=== PATIENT | female | born 1975 | race Caucasian/White ===

== ENCOUNTER 2016-03-29 08:57 | Emergency (ER) | payer SELFPAY ==
--- NOTE | 2016-03-29 10:59 | ER Document Report ---
ED ENT - General Chief Complaint: Sore Throat Stated Complaint: SORE THROAT Mode of Arrival: Ambulatory Information source: Patient Notes: 40 y/o F presents to ED c/o sinus pain, congestion, and sore throat. Pt reports intermittently persistent sinus pain for approximately last 3 weeks. States over the last 3 days pain and congestion has increased with associated small amount of whitish nasal drainage and sore throat. Reports associated subjective fever 2 days ago and bilateral ear "fullness". Denies difficulty breathing or swallowing, chest pain or shortness of breath, vision changes, neck pain, nausea or vomiting. - HPI Patient complains to provider of: Ear problem, Nose problem, Throat problem Onset: Last week Onset/Duration: Intermittent, Persistent, Worse Quality of pain: Achy Severity: Moderate Pain Level: 3 Context: Recent Illness Location of pain: Nose, Sinus, Throat Similar symptoms previously: Yes Recently seen / treated by doctor: No - Related Data Allergies/Adverse Reactions: azithromycin Allergy (Verified 03/29/16 09:23) Past Medical History - General Information source: Patient - Social History Smoking Status: Current Every Day Smoker Chew tobacco use (# tins/day): Yes Frequency of alcohol use: Occasional Drug Abuse: None Lives with: Family Family History: Reviewed & Not Pertinent Patient has suicidal ideation: No Patient has homicidal ideation: No - Medical History Medical History: Negative Surgical Hx: Negative - Immunizations Hx Diphtheria, Pertussis, Tetanus Vaccination: Yes Review of Systems - Review of Systems Constitutional: See HPI EENT: See HPI Cardiovascular: No symptoms reported Respiratory: No symptoms reported Gastrointestinal: No symptoms reported Genitourinary: No symptoms reported Female Genitourinary: No symptoms reported Musculoskeletal: No symptoms reported Skin: No symptoms reported Hematologic/Lymphatic: No symptoms reported Neurological/Psychological: No symptoms reported -: Yes All other systems reviewed and negative Physical Exam - Vital signs Vitals: Temp Pulse Resp BP Pulse Ox 97.9 F 78 16 110/64 100 03/29/16 09:01 03/29/16 09:01 03/29/16 09:01 03/29/16 09:01 03/29/16 09:01 Interpretation: Normal - General General appearance: Appears well In distress: None - HEENT Head: Normocephalic, Atraumatic Eyes: Normal Conjunctiva: Normal Extraocular movements intact: Yes Eyelashes: Normal Pupils: PERRL Ears: Normal. No: Pinna tenderness, Tragus tenderness External canal: Normal. No: Erythema, Swollen Tympanic membrane: Normal. No: Injected, Purulent effusion Sinus: Maxillary, Redness, Tenderness Nasal: No: Purulent discharge Mouth/Lips: Normal Mucous membranes: Normal, Moist Pharynx: Normal. No: Blood in hypopharynx, Erythema, Exudate, Peritonsillar abscess, Post nasal drainage, Retropharyngeal abscess, Tonsillar hypertrophy, Uvular edema, Potential airway comprom., Other Neck: Normal. No: Anterior cervical chain, Posterior cervical chain, Lymphadenopathy, Meningismus, Subcutaneous emphysema - Respiratory Respiratory status: No respiratory distress Chest status: Nontender Breath sounds: Normal - CTAB Chest palpation: Normal - Cardiovascular Rhythm: Regular Heart sounds: Normal auscultation Murmur: No Pulses: Normal: Radial, Posterior tibial, Dorsalis pedis Normal capillary refill: Yes - Abdominal Inspection: Normal Distension: No distension Bowel sounds: Normal Tenderness: Nontender Organomegaly: No organomegaly - Back Back: Normal, Nontender - Extremities General upper extremity: Normal inspection, Nontender, Normal color, Normal ROM , Normal temperature General lower extremity: Normal inspection, Nontender, Normal color, Normal ROM , Normal temperature, Normal weight bearing - Neurological Neuro grossly intact: Yes Cognition: Normal Orientation: AAOx4 [place] Coma Scale Eye Opening: Spontaneous [place] Coma Scale Verbal: Oriented [place] Coma Scale Motor: Obeys Commands [place] Coma Scale Total: 15 Speech: Normal Motor strength normal: LUE, RUE, LLE, RLE Sensory: Normal - Psychological Associated symptoms: Normal affect, Normal mood - Skin Skin Temperature: Warm Skin Moisture: Dry Skin Color: Normal Skin Turgor: Elastic Course - Re-evaluation Re-evalutation: 03/29/16 11:01 Patient hemodynamically stable, in no distress, afebrile. Patient is well- appearing and physical exam findings/presentation suggestive of uncomplicated sinusitis at this time. Patient appears stable for discharge and agrees with home care, follow-up, and ED return precautions. - Vital Signs Vital signs: Temp Pulse Resp BP Pulse Ox 97.9 F 78 16 110/64 100 03/29/16 09:01 03/29/16 09:01 03/29/16 09:01 03/29/16 09:01 03/29/16 09:01 Discharge - Discharge Clinical Impression: Sinusitis Qualifiers: Sinusitis location: maxillary Chronicity: acute Recurrence: not specified as recurrent Qualified Code(s): J01.00 - Acute maxillary sinusitis, unspecified Condition: Stable Disposition: HOME, SELF-CARE Instructions: Sinusitis ([facility]), Augmentin ([facility]), Antibiotic Therapy ([facility]), Acetaminophen, Use of Gwtp-Dtj-Aymgqol Ibuprofen ([facility]), Decongestant Medication ([facility]), Family Physicians / Practices Additional Instructions: Home self care: -Rest, hydration (8-10 glasses/day) -Steamy shower -Apply warm facial packs -Nasal saline irrigation lavage ( Neti Pot) -Sleep with head elevated -Avoid cigarette smoke -Use of humidifier/vaporizer -Balanced nutrition Follow-up with your primary care provider this week. Return to the Emergency Department for any worsening symptoms or concerns. Prescriptions: Guaifenesin/P-Ephed HCl [Pseudoephedrine-Guaif Sr Tab] 1 tab PO Q12HP PRN #6 tab.sr.12h PRN Reason: Amox Tr/Potassium Clavulanate [Augmentin 875-125 Tablet] 1 tab PO BID 7 Days Forms: Return to Work Referrals: [facility] [Provider Group] - Follow up in 3-5 days
[2016-03-29 11:20] VITALS: BP 115/63
== END 2016-03-29 11:20 | disposition home or self-care (01) ==
LOC: ER 08:57
DX: J01.00 Acute maxillary sinusitis, unspecified (principal); J02.9 Acute pharyngitis, unspecified; J34.89 Other specified disorders of nose and nasal sinuses; F17.200 Nicotine dependence, unspecified, uncomplicated
CPT/HCPCS: 99282